=== PATIENT | female | born 1985 | race Caucasian/White ===

== ENCOUNTER → 2019-08-23 | Outpatient (CLI) | payer OTHER ==
--- NOTE | 2019-08-24 16:40 | REP ---
Clinical: Growth evaluation. Findings: Examination demonstrates a single live intrauterine in cephalic presentation. motion is identified by technologist. Placenta is noted the posterior and grade I without evidence for placenta previa or abruption. Amniotic fluid volume is normal. Cervix measures 4.5 cm in length and appears closed. No evidence for nuchal cord. Gestational age by LMP 33 weeks 2 days with KIRA 10/09/2019 . Gestational age by current measurements 35 weeks 5 days with IKRA 09/22/2019 . FHR equals 135 beats per minute. BPD 9.0 cm 36 weeks 4 days HC 32.5 cm 36 weeks 5 days AC 31.2 cm 35 weeks 1 day FL 6.8 cm 35 weeks 0 days HL 6.1 cm 35 weeks 1 day HC/AC ratio 1.04 Estimated weight 2668 grams ( 87th percentile). Amniotic fluid index: 13.8 cm Umbilical cord SD ratio: 3.29 Impression: Single live advanced gestation in cephalic presentation demonstrating appropriate interval growth. Electronically Signed by True Najera MD 08/24/2019 04:31 P
== END ==
LOC: M RAD 09:22
PROVIDERS: ATTEND Registered Nurse Maternal Newborn
DX: Z34.83 Encounter for supervision of other normal pregnancy, third trimester (principal); Z3A.32 32 weeks gestation of pregnancy

== ENCOUNTER 2019-10-14 16:18 | Inpatient (IN) | payer OTHER ==
[2019-10-14] VITALS (10 sets, daily range): BP systolic 95–128; BP diastolic 50–74
[~2019-10-14] VITALS: Ht 177.8 cm; Wt 89.0 kg
[2019-10-14] MEDS ORDERED: PREN29TA4 PO (16:28)
--- NOTE | 2019-10-14 18:00 | REPVR ---
PROCEDURE INFORMATION: Exam: US ; Follow up Exam date and time: 10/14/2019 5:11 PM Age: 34 years old Clinical indication: Screening exam; Routine US, uterus; Patient HX: Growth; Additional info: 40+5 wks ega. Lga 87% on Aug; Perform growth US TECHNIQUE: Imaging protocol: Transabdominal ultrasound of the uterus, real time with image documentation. Follow-up (eg, re-evaluation of size by measuring standard growth parameters and amniotic fluid volume, re-evaluation of organ system(s) suspected or confirmed to be abnormal on a previous scan). COMPARISON: US OBS SINGEL GEST 08/23/2019 9:38 AM FINDINGS: Gestation: Single living intrauterine fetus. Heart rate: 137 beats per minute. Heart: 4 chambered cardiac anatomy, normal outflow tracts. Presentation: Cephalic position. Head, face, and neck: Normal appearance of the nose/lips and facial profile. Placenta: Right posterior grade 2 placenta, no previa. Central cord insertion. Amniotic fluid: Amniotic fluid is normal for gestational age. RAEGAN = 22.8 cm (95th percentile for 40 weeks is 21.4 cm). ANATOMICAL SURVEY: anatomy: Fluid is present in the stomach and bladder. Normal appearance of the kidneys. Normal appearance of a foot. Humeral length 39 weeks 4 days. Umbilical cord: 3 vessel umbilical cord. BIOMETRY: Estimated gestational age: Average ultrasound age: 40 weeks 4 days. Estimated due date: KIRA 10/10/2019 (reference). Estimated weight: 4338 g. 90 percentile ([place]) Biparietal diameter: 39 weeks 4 days. Head circumference: 41 weeks 4 days. Abdominal circumference: 42 weeks 0 days. Femur length: 39 weeks 6 days. MATERNAL: Cervix: The cervical length is 3.5 cm. Closed. IMPRESSION: Single living intrauterine fetus. Polyhydramnios. Estimated weight at the 90th percentile, similar to the preceding study. Electronically signed by: Praveen Cespedes On 10/14/2019 17:59:48 PM
[2019-10-14] MEDS: LR 1,000 ML IV SCH (18:13)
[2019-10-14 18:22] LABS: BASO % 0.2 % (0.0-1.0); EOS # 0.3 10^3/uL (0.0-0.5); EOS % 3.4 % (0.0-3.0); HEMATOCRIT 36.1 % (36.0-47.0); HEMOGLOBIN 11.9 g/dl (12.0-15.5); LYMPH # 1.7 10^3/uL (1.5-5.0); LYMPH % 17.5 % (24.0-44.0); MEAN CORPUSCULAR HEMOGLOBIN 30.5 pg (27.0-33.0); MEAN CORPUSCULAR VOLUME 92.6 fl (80.0-96.0); MONO # 0.6 10^3/uL (0.0-0.8); MONO % 6.6 % (0.0-5.0); NEUTROPHILS # 6.9 10^3/uL (1.5-8.5); NEUTROPHILS % 71.8 % (36.0-66.0); PLATELET COUNT, AUTOMATED 206 10^3/uL (150-450); WHITE BLOOD COUNT 9.7 10^3/uL (4.0-10.0)
[2019-10-14] MEDS ORDERED: LR 1,000 ML IV SCH ×2 (19:07)
[2019-10-14] MEDS ORDERED: LACTATED RINGER'S 1000 ML IV STA (19:07)
[2019-10-14] MEDS ORDERED: PENICILLIN G POTASSIUM IV 5 MU in D5W MINI-BAG PLUS 100 ML IV STA (19:07)
[2019-10-14] MEDS ORDERED: OXYTOCIN DRIP 30 UNITS in IV 1 EA IV SCH (19:15)
--- NOTE | 2019-10-14 19:19 | IPNPDOC ---
Text Note Date of Service The patient was seen on 10/14/19. NOTE Patient feeling intermittent mild ctx. No LOF or VB. Good FM. Review of US: Vtx, RAEGAN 23, EFW 4330gm (LGA) VS WNL ABD NT, Gravid SVE: 2/50/-3 FHT: Category 1, 130s, reactive, no decels, ctx q5-8min A/P: Fetus reassuring. I discussed with the patient that the fetus is LGA and ACOG does not give specific guidelines 7609-0080, stating mixed studies. I told her that there could be an increased risk of uterine rupture and definetly an increased risk of FTP. I recommended that if she desired a TOLAC that an epidural catheter be placed for emergency access and slow low dose pitocin. Also, we would watch her labor curve closely for evidence of FTP. Her last labor took 22hrs. Patient was consented for a TOLAC. She understands both options of TOLAC vs cesarian delivery. delivery includes risks of infection, bleeding needing a transfusion (with blood reaction or transmission of disease), damage to other organs including baby, need for future deliveries, longer recovery and hospitalization, future scarring, more recovery pain, possible limit to childbearing, pelvic and/or uterine disorders or pain permanently. Benefits include faster delivery, or . TOLAC includes risks of bleeding needing a transfusion (with blood reaction or transmission of disease), uterine or infection, perineal or vaginal lacerations, assisted delivery, distress or injury, emergency section, uterine rupture, of fetus and/or mother. Benefits include avoiding abdominal surgery and faster recovery. All questions were answered by the patient. She desires TOLAC. VS,Fishbone, I+O VS, Fishbone, I+O Laboratory Tests 10/14/19 18:03 Vital Signs Date Time Temp Pulse Resp B/P (MAP) Pulse Ox O2 Delivery O2 Flow Rate FiO2 10/14/19 18:06 98.4 70 16 128/70 (89) Jillian Perez MD Oct 14, 2019 19:19
[2019-10-14] MEDS ORDERED: PENICILLIN G POTASSIUM IV 2.5 MU in IV 1 EA IV SCH (23:15)
[2019-10-15] VITALS (21 sets, daily range): BP systolic 95–162; BP diastolic 53–81
[2019-10-15] MEDS: LR 1,000 ML IV SCH (00:38)
[2019-10-15] MEDS ORDERED: PENICILLIN G POTASSIUM 5 MU VIAL As Ordered ONE (02:31)
[2019-10-15] MEDS ORDERED: PENICILLIN G POTASSIUM IV 5 MU in D5W MINI-BAG PLUS 100 ML IV STA (02:32)
[2019-10-15] MEDS ORDERED: OXYTOCIN DRIP 30 UNITS in IV 1 EA IV SCH (04:59)
[2019-10-15] MEDS ORDERED: MEASLES,MUMPS,RUBELLA VACCINE INJ (MMR-II) (90707) SC SCH (05:00)
[2019-10-15] MEDS ORDERED: ANUSOL HC CREAM 30GM TOP PRN (05:00)
[2019-10-15] MEDS ORDERED: diphenhydrAMINE 25MG CAP PO PRN (05:00)
[2019-10-15] MEDS ORDERED: CALCIUM CARBONATE 500 MG CHEW U/D PO PRN (05:00)
[2019-10-15] MEDS ORDERED: LIDOCAINE 1% MDV 20ML VIAL INFIL ONE (05:00)
[2019-10-15] MEDS ORDERED: RHOGAM 300 MCG (1500 IU) INJ (J2790) IM SCH (05:00)
[2019-10-15] MEDS ORDERED: METHYLERGONOVINE MALEATE 0.2 MG TAB PO PRN (05:00)
[2019-10-15] MEDS ORDERED: MOM 30ML SUSPENSION UDC PO PRN (05:00)
[2019-10-15] MEDS ORDERED: SIMETHICONE 80 MG CHEW TAB PO PRN (05:00)
[2019-10-15] MEDS ORDERED: DIBUCAINE 1% OINTMENT 30GM TOP PRN (05:00)
[2019-10-15] MEDS ORDERED: ONDANSETRON 4MG/2ML VIAL IV PRN (05:00)
--- NOTE | 2019-10-15 05:06 | DNPDOC ---
[facility] Delivery Note Delivery Note DATE OF DELIVERY: 10/15/2019 PREDELIVERY DIAGNOSIS: -5/7 weeks' gestation and labor. POST DELIVERY DIAGNOSIS: Delivered. PROCEDURE: Spontaneous vaginal delivery. ORDER ENTRY SPECIALIST: Dr. Perez ANESTHESIA: None. ESTIMATED BLOOD LOSS: 500 mL. FINDINGS: 9 pound 8 ounce 4320gm boy infant, Score 8/9, nuchal cord times 0. DELIVERY SUMMARY: Patient is a 34-year-old 3 now para 3 who was admitted to labor and delivery for active labor for 3hours. Patient SROM clear around 0222. Baby boy head was delivered without difficulty over intact perineum in ОЛЕГ position at 0430. The nose and mouth were bulb suctioned. No nuchal cord was noted. The shoulders were then delivered without difficulty. was handed on mother's belly. Cord was then clamped x2 and cut after pulsation. Pitocin bolus was started. Perineum and vagina was inspected and found to have a left vaginal laceration. This was repaired with 1% lidocaine 6cc with 2- 0 chromic. The placenta was then delivered at 0452 spontaneously intact. Cord had a 3 vessel cord. EBL was 500mL. The vagina and perineum were reinspected and no further lacerations were found and hemostasis was good. Fundus was firm. Patient tolerated delivery well. Jillian Perez MD Oct 15, 2019 05:06
[2019-10-15] MEDS ORDERED: PENICILLIN G POTASSIUM IV 2.5 MU in IV 1 EA IV SCH (06:30)
[2019-10-15] MEDS ORDERED: **PENDING PCN ENTRY XX SCH (09:00)
[2019-10-15] MEDS: DOCUSATE SODIUM 100 MG CAP PO SCH ×2 (09:44→21:32)
[2019-10-15] MEDS: PRENATAL VITAMINS CHEWABLE TABLET PO SCH (09:44)
[2019-10-15] MEDS: IBUPROFEN 800 MG TAB PO PRN ×2 (11:41→19:53)
[2019-10-15] MEDS: ACETAMINOPHEN 500 MG TAB PO PRN ×2 (13:39→21:36)
[2019-10-16] MEDS: IBUPROFEN 800 MG TAB PO PRN ×2 (05:36→17:03)
[2019-10-16 05:41] VITALS: BP 114/69
[2019-10-16] MEDS ORDERED: DOCU100C16 PO (06:47)
[2019-10-16] MEDS ORDERED: IBUP80TA PO (06:47)
[2019-10-16] MEDS ORDERED: DIBU10OI TOP (06:47)
[2019-10-16] MEDS: DOCUSATE SODIUM 100 MG CAP PO SCH (08:10)
[2019-10-16] MEDS: PRENATAL VITAMINS CHEWABLE TABLET PO SCH (08:10)
[2019-10-16] MEDS: ACETAMINOPHEN 500 MG TAB PO PRN (12:57)
[2019-10-16 18:00] VITALS: BP 132/70
== END 2019-10-16 18:40 | disposition home or self-care (01) | DRG 807 ==
LOC: M LDI 16:18 → M OBS 10-15 06:58
PROVIDERS: ADMIT Advanced Practice Midwife; ATTEND Obstetrics & Gynecology
PROC: 3E033VJ Introduction of Other Hormone into Peripheral Vein, Percutaneous Approach (ICD-10-PCS; 2019-10-14)
PROC: 10E0XZZ Delivery of Products of Conception, External Approach (ICD-10-PCS; principal; 2019-10-15)
PROC: 0HQ9XZZ Repair Perineum Skin, External Approach (ICD-10-PCS; 2019-10-15)
DX: O48.0 Post-term pregnancy (principal); Z37.0 Single live birth; Z3A.40 40 weeks gestation of pregnancy; O34.211 Maternal care for low transverse scar from previous cesarean delivery; O99.824 Streptococcus B carrier state complicating childbirth; O36.63X0 Maternal care for excessive fetal growth, third trimester, not applicable or unspecified; O70.0 First degree perineal laceration during delivery

== ENCOUNTER 2021-09-20 16:38 | Inpatient (IN) | payer OTHER ==
[~2021-09-20] VITALS: Ht 177.8 cm; Wt 83.4 kg
[~2021-09-20 16:38] MED LIST: DIBU28OI2 TOP; DOCU100C16 PO; IBUP80TA PO; PREN29TA4 PO
[2021-09-20 17:06] VITALS: BP 128/78
[2021-09-20] MEDS ORDERED: PENICILLIN G POTASSIUM IV 5 MU in D5W MINI-BAG PLUS 100 ML IV STA (18:37)
[2021-09-20] MEDS ORDERED: OXYTOCIN DRIP 30 UNITS in IV 1 EA IV PRN ×4 (18:40)
[2021-09-20] MEDS ORDERED: LR 1,000 ML IV SCH (18:40)
[2021-09-20] MEDS ORDERED: LACTATED RINGER'S 1000 ML IV ONE (18:40)
[2021-09-20] MEDS ORDERED: OXYTOCIN INJ 10 UNITS/ML VIAL (J2590) IV PRN (18:40)
[2021-09-20] MEDS ORDERED: TRANEXAMIC ACID INJection 1,000 MG in NS 100 ML IV PRN (18:40)
[2021-09-20 18:58] LABS: HEMATOCRIT 36.9 % (36.0-47.0); HEMOGLOBIN 12.6 g/dl (12.0-15.5); MEAN CORPUSCULAR HEMOGLOBIN 31.5 pg (27.0-33.0); MEAN CORPUSCULAR HGB CONC 34.1 g/dl (32.0-36.5); MEAN CORPUSCULAR VOLUME 92.3 fl (80.0-96.0); PLATELET COUNT, AUTOMATED 180 10^3/uL (150-450); WHITE BLOOD COUNT 11.1 10^3/uL (4.0-10.0)
[2021-09-20] MEDS ORDERED: METHYLERGONOVINE MALEATE 0.2 MG TAB PO PRN (20:40)
[2021-09-20] MEDS ORDERED: MOM 30ML SUSPENSION UDC PO PRN (20:40)
[2021-09-20] MEDS ORDERED: DIBUCAINE 1% OINTMENT 30GM TOP PRN (20:40)
[2021-09-20] MEDS: LR 1,000 ML IV SCH (20:40)
[2021-09-20] MEDS ORDERED: ANUSOL HC CREAM 30GM TOP PRN (20:40)
[2021-09-20] MEDS ORDERED: OXYTOCIN DRIP 30 UNITS in IV 1 EA IV ONE (20:40)
[2021-09-20] MEDS ORDERED: MEASLES,MUMPS,RUBELLA VACCINE INJ (MMR-II) (90707) SC SCH (20:40)
[2021-09-20] MEDS ORDERED: OXYTOCIN INJ 10 UNITS/ML VIAL (J2590) IV ONE (20:40)
[2021-09-20] MEDS ORDERED: DOCUSATE SODIUM 100MG CAPSULE PO PRN (20:40)
[2021-09-20] MEDS ORDERED: RHOGAM 300 MCG (1500 IU) INJ (J2790) IM SCH (20:40)
[2021-09-20] MEDS ORDERED: ACETAMINOPHEN TAB 650MG DOSE (2X325MG) PO PRN (20:40)
[2021-09-20 20:42] LABS: CORD GAS ABE A -1.6; CORD GAS HCO3 A 21.1 MEQ/L; CORD GAS HCO3 V 22.1 MEQ/L; CORD GAS O2 SAT A 70.3 %; CORD GAS PCO2 A 30.4 mmHg; CORD GAS PCO2 V 39.9 mmHg; CORD GAS PH A 7.459 UNITS; CORD GAS PH V 7.362 UNITS; CORD GAS PO2 A 27.6 mmHg; CORD GAS PO2 V 15.3 mmHg; CORD GAS SBC A 22.5 MEQ/L; CORD GAS SBC V 20.3 MEQ/L; CORD GAS TCO2 V 23.4 MEQ/L
[2021-09-20 21:50] VITALS: BP 112/55
[2021-09-20] MEDS ORDERED: PENICILLIN G POTASSIUM IV 2.5 MU in IV 1 EA IV SCH (23:00)
[2021-09-21] MEDS: ACETAMINOPHEN 500 MG TAB PO PRN ×2 (00:36→06:43)
[2021-09-21] MEDS: IBUPROFEN 600MG TAB PO PRN ×2 (02:42→09:05)
[2021-09-21 06:00] VITALS: BP 112/55
[2021-09-21] MEDS: LR 1,000 ML IV SCH (07:28)
[2021-09-21] MEDS: PRENATAL VITAMINS CHEWABLE TABLET PO SCH (09:05)
[2021-09-21 09:52] LABS: HEMATOCRIT 35.3 % (36.0-47.0); HEMOGLOBIN 11.7 g/dl (12.0-15.5); MEAN CORPUSCULAR HEMOGLOBIN 31.6 pg (27.0-33.0); MEAN CORPUSCULAR HGB CONC 33.1 g/dl (32.0-36.5); MEAN CORPUSCULAR VOLUME 95.4 fl (80.0-96.0); PLATELET COUNT, AUTOMATED 165 10^3/uL (150-450)
[2021-09-21 10:00] VITALS: BP 117/61
[2021-09-21 18:00] VITALS: BP 122/67
[2021-09-22] MEDS: ACETAMINOPHEN 500 MG TAB PO PRN (05:29)
[2021-09-22 06:00] VITALS: BP 102/56
[2021-09-22] MEDS: IBUPROFEN 600MG TAB PO PRN (09:13)
[2021-09-22] MEDS: PRENATAL VITAMINS CHEWABLE TABLET PO SCH (09:14)
== END 2021-09-22 11:00 | disposition home or self-care (01) | DRG 807 ==
LOC: M LDO 16:38 → M LDI 18:39 → M OBS 09-21 03:34
PROVIDERS: ADMIT Obstetrics & Gynecology; ATTEND Obstetrics & Gynecology
PROC: 10E0XZZ Delivery of Products of Conception, External Approach (ICD-10-PCS; principal; 2021-09-20)
PROC: 10907ZC Drainage of Amniotic Fluid, Therapeutic from Products of Conception, Via Natural or Artificial Opening (ICD-10-PCS; 2021-09-20)
DX: O34.219 Maternal care for unspecified type scar from previous cesarean delivery (principal); Z37.0 Single live birth; Z3A.40 40 weeks gestation of pregnancy; O99.824 Streptococcus B carrier state complicating childbirth